=== PATIENT | female | born 1980 | race Two or more races ===

== ENCOUNTER 2019-05-26 08:22 | Outpatient (CLI) | payer OTHER | END 2019-05-26 11:31 | disposition home or self-care (01) | LOC: SONOGRAMA 08:22 | DX: E04.2 Nontoxic multinodular goiter (principal) ==

== ENCOUNTER 2023-05-28 13:54 | Outpatient (CLI) | payer OTHER | END 2023-05-28 13:56 | disposition home or self-care (01) | LOC: SONOGRAMA 13:54 | PROVIDERS: ATTEND Pathology Anatomic Pathology & Clinical Pathology | DX: D34 Benign neoplasm of thyroid gland (principal); E06.3 Autoimmune thyroiditis ==

== ENCOUNTER 2025-10-19 09:12 | Outpatient (CLI) | payer OTHER | END 2025-10-19 09:15 | disposition home or self-care (01) | LOC: SONOGRAMA 09:12 | PROVIDERS: ATTEND Pathology Anatomic Pathology & Clinical Pathology | DX: D34 Benign neoplasm of thyroid gland (principal); E07.89 Other specified disorders of thyroid; E04.2 Nontoxic multinodular goiter ==